=== PATIENT | female | born 1940 | race Caucasian/White ===

== ENCOUNTER 2024-11-01 13:08 | Outpatient (CLI) | payer MEDICARE, OTHER, SELFPAY ==
--- NOTE | 2024-11-01 14:47 | P.ANES_ITS ---
Anesthesia Charges Start Date/Time Anesthesia Start Date: 11/01/24 Anesthesia Start Time: 14:31 Stop Date/Time Anesthesia Stop Date: 11/01/24 Anesthesia Stop Time: 14:44 Summary Extremes of Age - Over 70 or under 1: CYBER INTELLIGENCE ANALYST Coding CPT Codes CPT Codes: ANES UPR GI NDSC PX NOS - 91855 ([id number]) P2 - PATIENT W/MILD SYST DISEASE, QK - PRINTED CIRCUIT BOARDS PLASMA ETCHER 2-4 CNCRNT ANES PROC, QX - CYBER INTELLIGENCE ANALYST SVC W/ MD MED DIRECTION Additional Codes: Summary - Extremes of Age - Over 70 or under 1: CYBER INTELLIGENCE ANALYST ([id number])
--- NOTE | 2024-11-01 14:47 | W.ANESCHARGE ---
Anesthesia Charges Start Date/Time Anesthesia Start Date: 11/01/24 Anesthesia Start Time: 14:31 Stop Date/Time Anesthesia Stop Date: 11/01/24 Anesthesia Stop Time: 14:44 Summary Extremes of Age - Over 70 or under 1: HYDROGEN OPERATOR Coding CPT Codes CPT Codes: ANES UPR GI NDSC PX NOS - 24848 ([id number]) P2 - PATIENT W/MILD SYST DISEASE, QK - INTERIOR BLOCK WIRER 2-4 CNCRNT ANES PROC, QX - HYDROGEN OPERATOR SVC W/ MD MED DIRECTION Additional Codes: Summary - Extremes of Age - Over 70 or under 1: HYDROGEN OPERATOR ([id number])
--- NOTE | 2024-11-01 15:23 | P.ANES_ITS ---
Anesthesia Charges Start Date/Time Anesthesia Start Date: 11/01/24 Anesthesia Start Time: 14:31 Stop Date/Time Anesthesia Stop Date: 11/01/24 Anesthesia Stop Time: 14:44 Summary Extremes of Age - Over 70 or under 1: MDA Coding CPT Codes CPT Codes: ANES UPR GI NDSC PX NOS - 58568 ([id number]) QK - PAPER MACHINE BACKTENDER 2-4 CNCRNT ANES PROC, QX - SPORTS INFORMATION DIRECTOR SVC W/ MD MED DIRECTION, P2 - PATIENT W/MILD SYST DISEASE Additional Codes: Summary - Extremes of Age - Over 70 or under 1: MDA ([id number])
== END 2024-11-01 13:09 | disposition home or self-care (01) ==
LOC: OP CLINIC 13:08
PROVIDERS: PCP Family Medicine; Visit Provider Internal Medicine Gastroenterology
DX: R10.13 Epigastric pain (principal); K21.9 Gastro-esophageal reflux disease without esophagitis
CPT/HCPCS: 00731; 43239; 88305; 99100; J2405; J2704

== ENCOUNTER 2024-11-20 14:30 | Outpatient (RCR) | payer MEDICARE, OTHER, SELFPAY ==
--- NOTE | 2024-08-07 15:17 | PT.OPEX ---
PT [place] Outpatient Eval PT [facility] Outpatient Eval Start: 08/07/24 11:43 Freq: Status: Active Protocol: Document 08/07/24 11:43 MRS (Rec: 08/07/24 15:13 MRS No Response) E-signed By Martha Haley DPT Physical Therapy Outpatient Evaluation Insurance Information Recert Due Date 11/06/24 Insurance Name [employer] M17.12 Unilateral primary Osteoarthritis of left knee M23.204 Derangement of unspecified medical meniscus due to old tear or injury, left knee Treating Diagnosis Pain in Knee Left M25.561 Stiffness of Knee Left M25.662 Weakness R53.1 Imaging Report Information XR= no fx; 80-90% joint space narrowing with tricompartmental osteophytes Referring MD Garett Liz PA-C Subjective Preferred Name Leah Subjective Initial subjective: Leah presents with c/o left knee pain for last 5-6 months. No injury reported. She received a cortisone injection in April which helped for ~2-3 weeks and pain returned. Leah first noticed pain when doing squats and lunges in her exercise classes. Pain has worsened at night. She can walk without issues but has difficulty getting up/down from sitting due to pain. Pain will wake pt up at night. JUWAN: none Aggravating factors: transitioning from or to sitting more so with lower chairs. 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 Work status: retired, teacher and customer advisor Pt goals: Being able to transfer from chair and toilet without pain. Medbridge access code: Pain Comments 0/10 at rest; at worst 9/10 with transfers and at night waking up pt. Date of Last Physician Visit 07/18/24 Current Work Status Retired Occupation Teacher and customer advisor Precautions Weight Bearing Status Full Weight Bearing Therapy Limitations/Systems Review Not Limited Objective Range of Motion LE ROM (R/L):? -Knee Flx:?140/121 -Knee Ext:?0/3 Strength LE Strength (R/L):? -Knee Ext: R: 4+/5, L: 4/5? -Knee Flex: R: 5/5, L: 4+/5? -Hip Abd: R: 4+/5, L: 4/5? -Hip Add: R: 4/5, L: 4/5? -Hip Ext: R: 4+/5, L: 4/5? -Hip Flx: R: 5/5, L: 4/5? Ankle Strength (R/L):? -DF: R: 5/5, L: 5/5? -PF (uni heel raise): R: 5 reps, L: 5 reps? -Inv: R: /5, L: 5/5? -Olga Lidia: R: 4/5, L: 4/5? Posture Increased genu valgus on R LE compared to left Other/Pertinent Objective Knee Ligamentous:? -negative Knee Meniscus:? -Mojgan?s:?positive -Apley?s:?positive -Thesslay's: negative LE Strength (R/L):? -Knee Ext: R: 4+/5, L: 4/5? -Knee Flex: R: 5/5, L: 4+/5? -Hip Abd: R: 4+/5, L: 4/5? -Hip Add: R: 4/5, L: 4/5? LE ROM (R/L):? -Knee Flx:?140/121 -Knee Ext:?0/3 Functional Test Performed & Score LEFS= 42/80 Assessment Assessment/Impression Patient is a 84-year-old female presenting to physical therapy for evaluation and treatment of osteoarthritis of left knee and meniscus tear. No report of injury and pt would like to manage diagnosis nonoperatively. Special tests indicate meniscus involvement but insignificant for other structures involvement. ROM is limited to 0-3-121 compared to 0-0-140 on the right. Patient presents with impaired left hip and knee strength, impaired left knee AROM, and impaired transfers with pain. These impairments are limiting the patient's ability to transfer to and from sitting without pain and sleep through the night. Patient appears motivated to participate in PT and presents with good prognosis to improve mobility, strength, proprioception and return to functional activities with skilled physical therapy intervention.? Educated patient on proper form and muscle activation throughout session in order to optimize muscle function and proper body mechanics.? Plan of Care Rehabilitation Potential Good Physical Therapy Goals STG's to be met in 2-4 weeks: 1.) Pt will report pain at 7/ 10 or less at worst. 2.) Pt will increase right knee AROM to 125 degrees or greater. 3.) Pt will be independent and compliant with HEP. LTG's to be met in 6-8 weeks: 1.) Pt will demonstrate full and pain free knee ROM? 2.)Pt will demonstrate 5/5 strength MMT in glut max & glut med to improve dynamic control with SLS activities and gait.? 3.) Pt will increase LEFS score by 10 points or greater. Patient Will Be Discharged From Therapy Completion of LTG(s),Skills Plateau,Independent w/HEP, Independently Progressing Evaluation Billing Untimed Code Treatment Minutes 30 PT Eval No Charge No Complexity Low Certification Information Initial Certification Date 08/07/24 Ending Certification Date 11/06/24 Provider Signature Required Yes Provider Signature Shows Agreement With POC & Medical Necessity Physician NPI Number Write NPI# Here Physician Comment/Change : Physician Signature & Date Requested Please Sign/Date Here
--- NOTE | 2024-11-08 16:06 | PT.OPDNX ---
PT [place] Outpatient Daily Note PT [facility] Outpatient Daily Note Start: 08/07/24 11:43 Freq: Status: Active Protocol: Document 11/08/24 12:54 HEN (Rec: 11/08/24 16:05 HEN [id number]) E-signed By Marita Garner DPT PT [facility] Daily Progress Note Visit Information Note Type Daily Note,Recert/Progress Note Visit Number 10 Insurance Information Recert Due Date 02/03/25 Insurance Name [employer] M17.12 Unilateral primary Osteoarthritis of left knee M23.204 Derangement of unspecified medical meniscus due to old tear or injury, left knee Treating Diagnosis Pain in Knee Left M25.561 Stiffness of Knee Left M25.662 Weakness R53.1 Imaging Report XR= no fx; 80-90% joint space narrowing with Information tricompartmental osteophytes Referring MD Garett Liz PA-C Subjective Preferred Name Leah Subjective Pt reports continued R knee irritation and L knee pain. R knee pain 5/10 with activity, 0/10 at rest. Aggravating with transfers Pain Comments currently 0/10 at rest; at worst 8/10 Date of Last 07/18/24 Physician Visit Precautions Weight Bearing Full Weight Bearing Status Home Exercise Home Exercise Access Code: [email or web address] Comments URL: [email or web address] Date: 11/08/2024 Prepared by: Marita Garner Exercises - Long Sitting Quad Set - 1 x daily - 7 x weekly - 3 sets - 10 reps - 5 seconds hold - Active Straight Leg Raise with Quad Set - 1 x daily - 7 x weekly - 1-3 sets - 10 reps - Straight Leg Raise with External Rotation - 1 x daily - 7 x weekly - 3 sets - 10 reps - Sidelying Hip Abduction - 1 x daily - 7 x weekly - 3 sets - 10 reps - Supine Quadriceps Stretch with Strap on Table - 1 x daily - 7 x weekly - 1 sets - 1-3 reps - 30 hold - Seated Hamstring Stretch - 1 x daily - 7 x weekly - 1 sets - 1-3 reps - 30 seconds hold - Seated Long Arc Quad - 1 x daily - 7 x weekly - 3 sets - 10 reps - Gastroc Stretch on Wall - 1 x daily - 7 x weekly - 1 sets - 1-3 reps - 30 hold - Sit to Stand with Arms Crossed - 1 x daily - 7 x weekly - 1-3 sets - 10 reps - Seated Hamstring Curl with Anchored Resistance - 1 x daily - 7 x weekly - 3 sets - 10 reps - Side Stepping with Resistance at Thighs - 1 x daily - 7 x weekly - 2 sets - 5 reps - Step Up - 2-3 x weekly - 3 sets - 10 reps - Single Leg Press - 2-3 x weekly - 3 sets - 10 reps - Sidelying Hip Abduction - 1 x daily - 7 x weekly - 2 -3 sets - 10 reps - Staggered Bridge - 1 x daily - 7 x weekly - 2-3 sets - 10 reps Objective Other/Pertinent LE Strength (R/L):? Objective -Knee Ext: R: 4+/5, L: 4+/5? -Knee Flex: R: 5/5, L: 4+/5? -Hip Abd: R: 4+/5, L: 4+ /5? -Hip Add: R: 4/5, L: 4/5? LE ROM (R/L):? -Knee Flx:?140/125 -Knee Ext:?0/0 Functional Test LEFS= 52/80 (last assessed october 16) Performed & Score 30 s sit to stand 19 seconds Patient Instructed Yes in Risks/Benefits Therapeutic Exercise Therapeutic Exercise 25 Minutes (minutes) Therapeutic Exercise To improve hip and knee strength, pt completed the : To Restore exercises listed below. Functional Status - Nustep level 3 x5 minutes - L Single leg leg press 2x10 85# - Side steps 2x4 rounds with blue theraband - Sidelying hip abduction 1x10 each side Therapeutic Activity Therapeutic Activity 13 Minutes (minutes) Therapeutic To improve functional tolerance with transfers and Activities Comments stairs, pt completed the exercises listed below. - Sit to stands from elevated surface: 2x10 forced stance on left to offload R LE - Step ups L 2x10 6 with UE support - L step down 4 with UE support 2x10 Treatment Minutes Timed Code Treatment 38 Minutes Total Treatment Time 38 Billing Units Therapeutic Activity 1 Units Therapeutic Exercise 2 Units Assessment/Impression Assessment/ Patient is a 84-year-old female osteoarthritis of left Impression knee and meniscus tear. Patient demonstrates improvement in L knee range of motion, decreased pain, increased strength. Pt continues to demonstrate impairments in functional strength. On 30 second sit to stand test, pt is well below age and gender matched peers. Patient has short term goals and is progressing appropriately towards rodent exterminator goals. Patient continues to benefit from skilled physical therapy intervention to address the impairments and activity limitations listed above. Primary Functional pain, impaired ROM, weakness, inability to complete sit Limitations to/from transfers without pain Plan of Care Physical Therapy STG's to be met in 2-4 weeks: Goals 1.) Pt will report pain at 7/10 or less at worst. MET 2.) Pt will increase left knee AROM to 125 degrees or greater. MET 3.) Pt will be independent and compliant with HEP. MET LTG's to be met in 6-8 weeks: 1.) Pt will demonstrate full and pain free knee ROM? MAKING PROGRESS 2.)Pt will demonstrate 5/5 strength MMT in glut max & glut med to improve dynamic control with SLS activities and gait.?MAKING PROGRESS 3.) Pt will increase LEFS score by 10 points or greater . MET Daily Plan of Care Continue per POC
== END 2025-01-03 17:13 | disposition home or self-care (01) ==
PROVIDERS: PCP Family Medicine; Visit Provider Physician Assistant Surgical
DX: M17.12 Unilateral primary osteoarthritis, left knee (principal); M23.204 Derangement of unspecified medial meniscus due to old tear or injury, left knee; Z51.89 Encounter for other specified aftercare
CPT/HCPCS: 97110; 97140; 97161; 97530